=== PATIENT | female | born 1995 | race Caucasian/White ===

== ENCOUNTER 2018-08-30 16:41 | Inpatient (IN) | payer OTHER ==
[~2018-08-30] VITALS: Ht 149.9 cm; Wt 54.9 kg
[2018-08-30] MEDS ORDERED: PROMETHAZINE 25 MG/ML VIAL IVP PRN (17:20)
[2018-08-30] MEDS ORDERED: OXYTOCIN 10 UNITS/ML VIAL IM SCH (17:20)
[2018-08-30] MEDS ORDERED: METHYLERGONOVINE 0.2 MG/ML AMP IM PRN (17:20)
[2018-08-30] MEDS ORDERED: CARBOPROST 250 MCG/ML AMP IM PRN (17:20)
[2018-08-30] MEDS ORDERED: PREN-380 PO (17:30)
[2018-08-30 18:05] LABS: BASOPHILS % (AUTO) 0.4 % (0.0-2.0); EOSINOPHILS # (AUTO) 0.1 K/uL (0-0.4); EOSINOPHILS % (AUTO) 1.8 % (0.0-4.0); HEMATOCRIT 33.7 % (36-48); HEMOGLOBIN 11.4 g/dL (12.0-16.0); LYMPHOCYTES # (AUTO) 1.8 K/uL (2.5-16.5); LYMPHOCYTES % (AUTO) 21.7 % (20.5-51.1); MEAN CORPUSCULAR HEMOGLOBIN 31 pg (27-31); MEAN CORPUSCULAR HGB CONC 34 g/dL (33-37); MEAN CORPUSCULAR VOLUME 92.3 fL (80-94); MONOCYTES # (AUTO) 0.6 K/uL (0.8-1.0); MONOCYTES % (AUTO) 7.3 % (1.7-9.3); NEUTROPHILS # (AUTO) 5.6 K/uL (1.8-7.7); NEUTROPHILS % (AUTO) 68.8 % (42.2-75.2); PLATELET COUNT (AUTO) 198 K/uL (140-450); RED BLOOD CELL COUNT(AUTO) 3.65 MIL/uL (4.20-5.40); RED CELL DISTRIBUTION WIDTH 14.9 % (11.6-13.7); WHITE BLOOD COUNT (AUTO) 8.1 K/uL (4.8-10.8)
[2018-08-30 18:31] LABS: APPEARANCE,URINE CLEAR (CLEAR); BILIRUBIN,URINE NEGATIVE (NEGATIVE); BLOOD, URINE NEGATIVE (NEGATIVE); COLOR,URINE YELLOW (YELLOW); LEUKOCYTE ESTERASE ,URINE NEGATIVE (NEGATIVE); NITRITE, URINE NEGATIVE (NEGATIVE); PH,URINE 6.5 (5.0-9.0); UGLUCOSE NEGATIVE (NEGATIVE)
[2018-08-30] MEDS ORDERED: MISOPROSTOL 25 MCG TAB ONE (19:30)
[2018-08-30] MEDS ORDERED: OXYTOCIN 20 UNITS in LACTATED RINGERS 1,000 ML IV SCH (19:51)
[2018-08-30] MEDS ORDERED: ONDANSETRON 4 MG/2 ML VIAL IVP PRN (19:55)
[2018-08-30] MEDS ORDERED: NALBUPHINE 10 MG/ML AMP IVP PRN (19:55)
[2018-08-30] MEDS ORDERED: MISOPROSTOL 25 MCG TAB VG ONE (19:55)
[2018-08-30] MEDS ORDERED: MISOPROSTOL 25 MCG TAB VG SCH (20:00)
[2018-08-30] MEDS: LACTATED RINGERS 1,000 ML IV SCH (20:15)
[2018-08-31] MEDS ORDERED: TERBUTALINE 1 MG/ML VIAL SUBQ SCH ×2 (00:50→05:00)
[2018-08-31] MEDS ORDERED: TERBUTALINE 1 MG/ML VIAL SUBQ ONE (00:57)
[2018-08-31] MEDS ORDERED: LIDOCAINE MPF 1% ONE (02:25)
[2018-08-31] MEDS ORDERED: OXYTOCIN 20 UNITS/LR PREMIX 1,000 ML IV ONE (02:35)
[2018-08-31] MEDS ORDERED: NALBUPHINE 10 MG/ML AMP ONE ×2 (03:20→07:09)
[2018-08-31] MEDS: LACTATED RINGERS 1,000 ML IV SCH (03:25)
[2018-08-31] MEDS: NALBUPHINE 10 MG/ML AMP IVP PRN ×2 (04:45→07:11)
--- NOTE | 2018-08-31 06:26 | NUR ---
PATIENT HAS BEEN SCREENED AND CATEGORIZED LOW NUTRITION RISK. PATIENT WILL BE SEEN WITHIN 7 DAYS OF ADMISSION. 09/06/18 AUREA BAIRES MS, RDN
[2018-08-31] MEDS ORDERED: OXYTOCIN 10 UNITS/ML VIAL ONE (08:55)
[2018-08-31] MEDS ORDERED: OXYTOCIN 20 UNITS in LACTATED RINGERS 1,000 ML IV SCH (11:04)
[2018-08-31] MEDS ORDERED: IBUPROFEN 600 MG TAB PO PRN (11:05)
[2018-08-31] MEDS ORDERED: ACETAMINOPHEN 325 MG TAB PO PRN (11:05)
[2018-08-31] MEDS ORDERED: MEASLES, MUMPS, AND RUBELLA 1 VIAL SQVAC PRN (11:05)
[2018-09-01 09:20] LABS: BASOPHILS # (AUTO) 0.1 K/uL (0.00-0.22); BASOPHILS % (AUTO) 0.6 % (0.0-2.0); EOSINOPHILS # (AUTO) 0.1 K/uL (0-0.4); HEMATOCRIT 30.4 % (36-48); HEMOGLOBIN 10.1 g/dL (12.0-16.0); LYMPHOCYTES # (AUTO) 2.1 K/uL (2.5-16.5); MEAN CORPUSCULAR HEMOGLOBIN 31 pg (27-31); MEAN CORPUSCULAR HGB CONC 33 g/dL (33-37); MEAN CORPUSCULAR VOLUME 93.5 fL (80-94); MONOCYTES # (AUTO) 0.6 K/uL (0.8-1.0); MONOCYTES % (AUTO) 5.5 % (1.7-9.3); NEUTROPHILS # (AUTO) 8.5 K/uL (1.8-7.7); NEUTROPHILS % (AUTO) 74.9 % (42.2-75.2); PLATELET COUNT (AUTO) 181 K/uL (140-450); RED BLOOD CELL COUNT(AUTO) 3.25 MIL/uL (4.20-5.40); RED CELL DISTRIBUTION WIDTH 14.7 % (11.6-13.7); WHITE BLOOD COUNT (AUTO) 11.4 K/uL (4.8-10.8)
[2018-09-02] MEDS ORDERED: ACET-9800 PO (12:42)
[2018-09-02] MEDS ORDERED: FERR325E14 PO (12:43)
[2018-09-02] MEDS ORDERED: BISA5TAB79 PO (12:47)
== END 2018-09-02 15:35 | disposition home or self-care (01) | DRG 560 ==
LOC: MLD 16:41 → MFCC 08-31 12:05
PROVIDERS: ADMIT Obstetrics & Gynecology; ATTEND Obstetrics & Gynecology
PROC: 10E0XZZ Delivery of Products of Conception, External Approach (ICD-10-PCS; principal; 2018-08-31)
PROC: 3E0234Z Introduction of Serum, Toxoid and Vaccine into Muscle, Percutaneous Approach (ICD-10-PCS; 2018-08-31)
DX: O41.03X0 Oligohydramnios, third trimester, not applicable or unspecified (principal); O69.81X0 Labor and delivery complicated by cord around neck, without compression, not applicable or unspecified; Z37.0 Single live birth; Z3A.39 39 weeks gestation of pregnancy
CPT/HCPCS: 36415; 51702; 59200; 59409; 76815; 81003; 85025; 86592; 86886; 86900; 86901; J2001; J2300; J2590; J3105; J7120; Q0092